=== PATIENT | female | born 1990 | race African-American/Black ===

== ENCOUNTER 2019-03-19 00:19 | Emergency (ER) | payer BC, MEDICAID, SELFPAY ==
[2019-03-19 01:05] LABS: Hemoglobin 11.7 g/dL (12.0-16.0); Mean Corpuscular HGB CONC 33.6 g/dL (32.0-36.0); Mean Corpuscular Hemoglobin 29.9 pg (27.0-31.0); Mean Corpuscular Volume 89.1 fL (78.0-98.0); RBC Distribution Width 13.2 % (11.5-14.5); White Blood Cell (WBC) Count 5.3 thou/uL (4.8-10.8)
[2019-03-19 01:21] LABS: BHCG - Serum Negative (NEGATIVE); Pregs Control Background? CLEAR/WHITE (CLR/WHITE); Pregs Control Bar Appear? YES (CONTROL BAR)
[2019-03-19 01:26] LABS: ALT (SGPT) Less than 7 U/L (8-55); AST (SGOT) 14 U/L (5-34); Albumin 4.4 g/dL (3.5-5.0); Alkaline Phosphatase 71 U/L (40-150); Anion Gap 10 mmol/L (10-20); BUN (Urea Nitrogen) 11 mg/dL (7.0-18.7); Bilirubin, Total 0.3 mg/dL (0.2-1.2); Calc. Creatinine Clearance 0 mL/min (70-130); Carbon Dioxide 27 mmol/L (22-29); Chloride 106 mmol/L (98-107); Estimated GFR-MDRD Greater than 90; Glucose 88 mg/dL (70-105); Lipase 52 U/L (8-78); Potassium 3.6 mmol/L (3.5-5.1); Protein, Total 7.4 g/dL (6.0-8.3); Sodium 139 mmol/L (136-145)
[2019-03-19 01:27] LABS: #Basophils 0.1 thou/uL (0.0-0.2); #Eosinphils 0.2 thou/uL (0.0-0.7); #Lymphocytes 2.6 thou/uL (1.20-3.40); #Monocytes 0.4 thou/uL (0.11-0.59); #Neutrophils 2.1 thou/uL (1.40-6.50); %Basophils 1.1 % (0.0-1.0); %Eosinophils 3.1 % (0.0-10.0); %Lymphocytes 49.4 % (21.0-51.0); %Monocytes 6.5 % (0.0-10.0); %Neutrophils 39.8 % (42.0-75.0); Mean Platelet Volume 8.9 fL (7.4-10.4); Platelet Count 117 thou/uL (130-400); Platelet Morphology Comment Appears Decreased
[2019-03-19 02:47] LABS: INR-International Normal Ratio 1.1; PTT 36.1 SEC (22.9-36.1); Prothrombin Time 14.6 SEC (12.0-14.7)
[2019-03-19 22:49] LABS: Chlamydia by PCR Not Detected (NotDetected); GC by PCR Not Detected (NotDetected)
== END 2019-03-19 02:40 | disposition home or self-care (01) ==
LOC: ERS 00:19
DX: N93.9 Abnormal uterine and vaginal bleeding, unspecified (principal); D69.6 Thrombocytopenia, unspecified
CPT/HCPCS: 36415; 80053; 83690; 84443; 84703; 85025; 85610; 85730; 87480; 87491; 87510; 87591; 87660; 99284

== ENCOUNTER 2019-05-14 16:09 | Emergency (ER) | payer SELFPAY | END 2019-05-14 17:01 | disposition home or self-care (01) | LOC: SCSER 16:09 | DX: H10.9 Unspecified conjunctivitis (principal) | CPT/HCPCS: 99282 ==